=== PATIENT | female | born 1995 | race Caucasian/White ===

== ENCOUNTER 2021-02-25 23:49 | Emergency (ER) | payer OTHER ==
[~2021-02-25] VITALS: Ht 157.5 cm; Wt 90.7 kg
[2021-02-25 23:53] VITALS: BP 157/99
[2021-02-26] MEDS ORDERED: AMOXICILLIN875 MG PO (00:49)
[2021-02-26] MEDS ORDERED: PROAIR HFA8.5 GM INH (00:50)
[2021-02-26] MEDS ORDERED: PREDNISONE 20 M20 MG PO (00:57)
== END 2021-02-26 00:57 | disposition home or self-care (01) ==
LOC: ER 23:49
DX: J01.00 Acute maxillary sinusitis, unspecified (principal); B96.89 Other specified bacterial agents as the cause of diseases classified elsewhere; R05.9 Cough, unspecified; F12.90 Cannabis use, unspecified, uncomplicated

== ENCOUNTER 2021-03-21 11:23 | Emergency (ER) | payer OTHER ==
[~2021-03-21] VITALS: Ht 157.5 cm; Wt 90.7 kg
[~2021-03-21 11:23] MED LIST: AMOXICILLIN875 MG PO; PREDNISONE 20 M20 MG PO; PROAIR HFA8.5 GM INH
[2021-03-21 12:39] LABS: HEMOGLOBIN 12.7 gm/dL (12.0-15.0); MCH 28.3 pg (26.0-34.0); MCHC 32.6 g/dL (28.0-37.0); MCV 86.6 fL (80.0-100.0); RBC 4.5 mil/uL (4.20-5.00); RDW 13.1 % (10.5-14.5)
[2021-03-21 13:14] LABS: POTASSIUM 3.5 mmol/L (3.5-5.1)
[2021-03-21 13:16] LABS: CREATININE 0.6 mg/dL (0.6-1.0); TOTAL BILIRUBIN 0.4 mg/dL (0.2-1.0)
[2021-03-21 13:17] LABS: ALBUMIN 2.9 g/dL (3.4-5.0); CALCIUM 9.5 mg/dL (8.5-10.1); TOTAL PROTEIN 7.3 g/dL (6.4-8.2)
[2021-03-21 13:39] LABS: URINE BILIRUBIN NEGATIVE (Negative); URINE BLOOD NEGATIVE (Negative); URINE CLARITY CLEAR; URINE COLOR YELLOW; URINE GLUCOSE-RANDOM* NEGATIVE (Negative); URINE KETONES 3+ (Negative); URINE LEUKOCYTES-REFLEX NEGATIVE (Negative); URINE NITRITE-REFLEX NEGATIVE (Negative); URINE PROTEIN (DIPSTICK) TRACE (Negative); URINE SPECIFIC GRAVITY >= 1.030 (1.005-1.035); URINE UROBILINOGEN 0.2 E.U./dl (0.2-1.0)
[2021-03-21 14:04] LABS: URINE REDUCING SUBSTANCE NEGATIVE
[2021-03-21] MEDS ORDERED: ZOFRAN ODT4 MG PO (14:44)
[2021-03-21 16:02] VITALS: BP 112/72
== END 2021-03-21 16:02 | disposition home or self-care (01) ==
LOC: ER 11:23
PROVIDERS: Nurse Practitioner Family
DX: O26.892 Other specified pregnancy related conditions, second trimester (principal); Z20.822 Contact with and (suspected) exposure to COVID-19; E86.0 Dehydration; K52.9 Noninfective gastroenteritis and colitis, unspecified; Z3A.20 20 weeks gestation of pregnancy